=== PATIENT | male | born 1950 ===

== ENCOUNTER 2020-10-08 04:45 | Emergency (ER) | payer SELFPAY ==
--- NOTE | 2020-10-08 05:03 | EDPHYS ---
Physician Documentation [facility] Name: León Foster Age: 70 yrs Sex: Male : 1950 Arrival Date: 10/08/2020 Time: 04:39 Bed 30 Private MD: ED Physician Jason Juan HPI: 10/08 04:47 This 70 yrs old Male presents to ER via Unassigned with complaints of CPR. ghassan 04:47 This 70 yrs old Male presents to ER via Unassigned with complaints of CPR. ghassan 04:47 Preceding the arrest, the patient collapsed. The arrest occurred at home. Pre-hospital ghassan course: EMS care prior to arrival: initiation of ACLS, intubation oxygen, 30 minutes elapsed prior to ACLS. ACLS has been in progress for 30 minutes. The patient has not experienced similar symptoms in the past. - Family history:: not pertinent. ROS: 04:47 Unable to obtain ROS due to obtunded state, cpr. ghassan Exam: 04:47 Cardiovascular: Rate: actual rate is 0 bpm, Rhythm: asystole, Pulses: not palpable, ghassan Heart sounds: none, Edema: is not appreciated, JVD: is not appreciated. 05:00 Respiratory: Breath sounds: are clear throughout, Respiratory rate: zero [facility] Vital Signs: 04:51 Pulse 0; Resp 20 A; Temp 98.0(R); Pulse Ox 81% on ETT ambu; em MDM: 04:47 Patient medically screened. ghassan 05:02 Differential diagnosis: arrythmia, cardiac arrest, respiratory arrest, asphyxiation. [facility] Data reviewed: vital signs, nurses notes, EMS record. Data interpreted: cardiac monitor: rate is 0 beats/min, rhythm is asystole, Pulse oximetry: on ventilator is 81 %. Test interpretation: by ED physician or midlevel provider: not applicable. 10/08 05:07 Order name: glucometer results - FOR PT WITH NO ID em Administered Medications: 04:37 Drug: EPINEPHrine 0.1mg/mL 1:10,000 1 mg Route: IVP; Site: left antecubital; em 05:03 Follow up: Response: No adverse reaction; No change in condition em 04:39 Drug: Sodium Bicarbonate 1 amp Route: IVP; Site: left antecubital; em 05:03 Follow up: Response: No adverse reaction; No change in condition em 04:42 Drug: EPINEPHrine 0.1mg/mL 1:10,000 1 mg Route: IVP; Site: left antecubital; em 05:03 Follow up: Response: No adverse reaction; No change in condition em Disposition Summary: 10/08/20 05:02 Patient Location: [facility] Pronouncing Physician: Jason Juan cha Time of : 04:44 10/08/2020 ghassan Diagnosis - Cardiac arrest, cause unspecified ghassan - Cardiac arrhythmia, unspecified ghassan - Acute respiratory failure hgassan Signatures: Dispatcher [employer] EDJason Middleton MD MD cha Munoz, Edgar, RN RN em
--- NOTE | 2020-10-08 05:03 | ER ---
Nurse's Notes [facility] Name: León Foster Age: 70 yrs Sex: Male : 1950 Arrival Date: 10/08/2020 Time: 04:39 Bed 30 Private MD: Diagnosis: Cardiac arrest, cause unspecified;Cardiac arrhythmia, unspecified;Acute respiratory failure Presentation: 10/08 04:51 Chief complaint: EMS states: called for unresponsive pt in the bathroom, on scene pt em was asystole at 0340, pt was given total of 450 amiodarone, 5 Epi's and 1 bicarb, PEA on scene, went into Vtach and was shocked several times with no rhythm change, BGL 129, pt arrived to ED at 0434 hx of HTN and 2 previous VA's. Care prior to arrival: CPR via thumper performed by EMS and is still in progress Medication(s) given: 5 Epi, 1 amp Bicarb, 450 mg amiodarone. Compressions began prior to arrival. 04:51 Method Of Arrival: EMS: [facility] em 04:51 Acuity: CAMILLE 1 em - Family history:: not pertinent. Assessment: 04:41 CPR assessment: unresponsive, intubated, mechanical ventilation, pulses absent w/ em compressions. 04:41 Cardiovascular: Rhythm is asystole. em 04:43 CPR assessment: unresponsive, intubated, mechanical ventilation, pulses absent w/ em compressions. Cardiac rhythm is asystole. 07:36 Reassessment: awaiting family contact for home information. jd3 09:49 Reassessment: spoke with Nilay Bourgeois , pt son-in-law, family is still trying to verify iw where pt had previously made arrangements. 11:00 Reassessment: notified home, will be approx 2 hours before pt can be picked up. iw 14:00 Reassessment: pt transported to [facility], [address] [place], [place], . Vital Signs: 04:51 Pulse 0; Resp 20 A; Temp 98.0(R); Pulse Ox 81% on ETT ambu; em ED Course: 04:39 Patient arrived in ED. mw2 04:39 Inserted saline lock: 20 gauge in left antecubital area, using aseptic technique. Blood em collected. 04:47 Jason Juan MD is Attending Physician. [facility] 04:50 Police called Mando Streeter to notify the Technical Analyst of the patient. mw2 04:58 Triage completed. em 05:01 Jason Juan MD is Pronouncing Provider. [facility] 07:35 José Aguirre, RN is Primary Nurse. [email or web address] Administered Medications: 04:37 Drug: EPINEPHrine 0.1mg/mL 1:10,000 1 mg Route: IVP; Site: left antecubital; em 05:03 Follow up: Response: No adverse reaction; No change in condition em 04:39 Drug: Sodium Bicarbonate 1 amp Route: IVP; Site: left antecubital; em 05:03 Follow up: Response: No adverse reaction; No change in condition em 04:42 Drug: EPINEPHrine 0.1mg/mL 1:10,000 1 mg Route: IVP; Site: left antecubital; em 05:03 Follow up: Response: No adverse reaction; No change in condition em Outcome: 05:00 Patient : Time of 04:44 Pronounced by Jason Juan MD em 05:00 Condition: 14:01 Patient left the ED. iw Signatures: Jason Juan MD MD cha Munoz, Edgar, RN RN Arlin Fuentes RN MARTELL José Aguirre, RN RN karey BenavidesSapna josephViry [email or web address] Corrections: (The following items were deleted from the chart) 05:04 04:51 Chief complaint: EMS states: called for unresponsive pt in the bathroom, on scene em pt was asystole at 0340, pt was given total of 450 amiodarone, 5 Epi's and 1 bicarb, PEA on scene, BGL 129, pt arrived to ED at 0434 hx of HTN and 2 previous VA's em 05:06 04:51 CPR assessment: unresponsive, intubated, mechanical ventilation, pulses absent w/ em compressions, em 05:06 04:51 Cardiac rhythm is asystole em em
[2020-10-08 14:21] VITALS: TEMP 98; O2SAT 81
== END 2020-10-08 14:01 ==
LOC: ER 04:45
PROC: 5A12012 Performance of Cardiac Output, Single, Manual (ICD-10-PCS; principal; 2020-10-08)
DX: I46.9 Cardiac arrest, cause unspecified (principal)
CPT/HCPCS: 36415; 82947; 92950; 96374; 96375; 99285